=== PATIENT | male | born 1975 | race Caucasian/White ===

== ENCOUNTER 2021-02-07 11:17 | Outpatient (CLI) | payer OTHER, SELFPAY ==
--- NOTE | ~2021-02-07 | XR_ITS ---
EXAMINATION: XR foot RT min 3V DATE: 02/07/2021 11:52 INDICATION: Right foot pain. TECHNIQUE: 4 views of right foot were obtained. COMPARISON: None. FINDINGS: Bone alignment is normal. No fracture. There is mild osteoarthritis of first metatarsophala ngeal joint and talonavicular joint. IMPRESSION: 1. Mild polyarticular osteoarthritis. Reviewed, dictated and finalized at location A. IGERATION SYSTEM INSTALLER
--- NOTE | ~2021-02-07 | XR_ITS ---
EXAMINATION: XR lumbar spine 2-3V DATE: 02/07/2021 11:52 INDICATION: Low back pain. TECHNIQUE: 3 views of lumbar spine were obtained. COMPARISON: Lumbar spine radiographs 05/18/2011 FINDINGS: Bone alignment is normal. Vertebral body heights and intervertebral disc heights are normal . There are endplate osteophytes at multiple levels. There is multilevel mild facet joint osteoarthri tis. IMPRESSION: 1. Mild lumbar spondylosis. Reviewed, dictated and finalized at location A. UNHAIRER IMPRESSION: 1. Mild lumbar spondylosis.
--- NOTE | ~2021-02-07 | XR_ITS ---
EXAMINATION: XR chest 2V 02/07/2021 11:52 INDICATION: Chest pain PROCEDURE: 2 view chest COMPARISON: 07/18/2009 FINDINGS: The lungs are clear. The cardiomediastinal silhouette is within normal limits. There are no pleural effusions. There is no pneumothorax suspected. IMPRESSION: 1: NO ACUTE CARDIOPULMONARY DISEASE. Reviewed, dictated and finalized at location B. CLE DYNAMICS ENGINEER
== END 2021-02-07 11:18 | disposition home or self-care (01) ==
LOC: ANHIMG 11:27
PROVIDERS: PCP Emergency Medicine; Visit Provider Emergency Medicine
DX: R07.9 Chest pain, unspecified (principal); M47.896 Other spondylosis, lumbar region; M19.071 Primary osteoarthritis, right ankle and foot
CPT/HCPCS: 71046; 72100; 73630

== ENCOUNTER 2021-02-15 04:01 | Emergency (ER) | payer OTHER, SELFPAY ==
--- NOTE | ~2021-02-15 | XR_ITS ---
EXAMINATION: XR chest 1V portable DATE: 02/15/2021 04:32 INDICATION: Chest pain. TECHNIQUE: A single frontal view of the chest was obtained on 2 radiographs. COMPARISON: Chest 2 views 02/07/2021, CT abdomen and pelvis 05/25/2011 FINDINGS: There are mild airspace opacities in right lower lung zone. No pleural effusion or pneumoth orax. The heart size is normal. IMPRESSION: 1. Mild airspace opacities in right lower lung zone, consistent with atelectasis versus pneumonia. Reviewed, dictated and finalized at location A. WORKER IMPRESSION: 1. Mild airspace opacities in right lower lung zone, consistent with atelectasi s versus pneumonia.
[2021-02-15 04:07] VITALS: BP 119/76; PULSE 88; RESP 18; TEMP 37; O2SAT 99
--- NOTE | 2021-02-15 04:09 | ED.URI ---
HPI - URI/Sore Throat General Chief Complaint: Upper Respiratory Infection Stated Complaint: cough Time Seen by Provider: 02/15/21 04:08 Source: patient Mode of arrival: ambulatory Limitations: no limitations History of Present Illness HPI Narrative: The patient is a 45-year-old male presenting for evaluation of cough, burning chest pain. Patient states that he began to feel unwell approximately 9 days ago. Patient initially had congestion, sore throat, developed a dry cough over the past week. Patient states that he has chest pain with coughing. No lingering chest pain or pressure. No jaw pain, neck pain or shoulder pain. Denies any shortness of breath. Denies leg swelling or calf pain. Denies pleuritic chest pain. Patient states he has been unable to sleep secondary to chronic coughing. He denies fever, chills, nausea or vomiting. No loss of sense of taste or smell. Patient was seen at his primary care physician's office, states that he had a negative Covid test and a chest x-ray which did not show any evidence of pneumonia. Patient has been taking Mucinex [id number] without much improvement in his symptoms. Related Data Allergies Allergy/AdvReac Type Severity Reaction Status Date / Time No Known Allergies Allergy Unverified 09/22/14 12:45 Review of Systems Review of Systems: CONSTITUTIONAL: Denies fever, chills, or sweats. EYES: Denies visual changes, redness, or discharge. ENT: Denies rhinorrhea, congestion, sore throat, or otalgia. CARDIOVASCULAR: Denies severe chest pain, he denies palpitations or edema RESPIRATORY:Reports cough, denies dyspnea GASTROINTESTINAL: Denies abdominal pain, nausea, vomiting, or diarrhea. GENITOURINARY: Denies dysuria or hematuria. SKIN: Denies rash or itching. MUSCULOSKELETAL: Denies back pain, joint pain, or myalgia. NEUROLOGIC: Denies headache, numbness, or weakness. [facility] Family History Family History (Updated 10/07/15 @ 23:19 by DOCTOR UNKNOWN) Father Hypertension Family history of diabetes mellitus in first degree relative Mother Hypertension Asthma Social History Social History (Updated 02/15/21 @ 04:31 by Katerin Jamison MD) Smoking status: Current every day smoker Tobacco type: cigarettes Alcohol intake: never Substance use: never Gender identity (if verbalized by the patient): Male Exam Narrative: GENERAL: Awake, alert, conversant HEAD: Normocephalic, atraumatic. EYES: PERRLA and EOMI. ENT: Nares clear, no rhinorrhea or epistaxis. Mucous membranes moist. NECK: Supple. CHEST: No respiratory distress, no tachypnea breathing even and non labored, no wheezing, no crackles HEART: Regular rate, sinus rhythm ABDOMEN:Non distended, non tender EXTREMITIES: Normal range of motion. No edema. No calf tenderness bilaterally. SKIN: Warm, dry, no rash. NEURO:No focal deficits. Alert and oriented x3 Course Vital Signs Vital signs: Vital Signs Temperature 37.0 C 02/15/21 04:07 Pulse Rate 88 02/15/21 04:07 Respiratory Rate 18 02/15/21 04:07 Blood Pressure 119/76 02/15/21 04:07 Pulse Oximetry 99 02/15/21 04:07 Temperature 37.0 C 02/15/21 04:07 Pulse Rate 88 02/15/21 04:07 Respiratory Rate 18 02/15/21 04:07 Blood Pressure 119/76 02/15/21 04:07 Pulse Oximetry 99 02/15/21 04:07 MDM - URI/Sore Throat MDM Narrative Medical decision making narrative: Patient presenting for evaluation of cough. At the time of assessment, ABCs are intact and vital signs are stable. EKG without acute ischemic changes. Patient without any anginal type symptoms. Patient was given anti-inflammatories, he was swabbed for influenza which was negative. Patient has a leukocytosis. No hypotension, he is afebrile. Differential includes pneumonia, sinusitis, bronchitis, upper respiratory infection. Chest x-ray seems consistent with a developing right-sided opacity. There is no Chitra consolidation. Given leukocytosis, cough, lingering sym
--- NOTE | 2021-02-15 04:18 | ECG_ITS ---
Measurements Intervals [place] Rate: 84 P: 19 SD: 129 QRS: 50 QRSD: 88 T: 43 QT: 370 QTc: 439 Interpretive Statements SINUS RHYTHM BASELINE WANDER- AVL NORMAL ECG Electronically Signed On 02-15-2021 6:49:05 TUBE REPAIRER by Julian Brandt D.O.
[2021-02-15 04:51] LABS: Basophils Absolute Auto 0.1 K/mm3 (0.0-0.1); Basophils Percent Auto 0.5 % (0.2-1.2); Eosinophils Absolute Auto 0.5 K/mm3 (0-0.3); Eosinophils Percent Auto 3.1 % (0-4.4); Hematocrit 43.7 % (42.0-52.0); Hemoglobin 15.2 g/dL (14.0-18.0); Immature Granulocyte Absolute 0.09 K/mm3 (0.00-0.031); Immature Granulocyte Percent A 0.6 % (0-0.5); Lymphocytes Absolute Auto 3.56 K/mm3 (0.9-3.2); Lymphocytes Percent Auto 22.4 % (18.3-44.2); Mean Corpuscular HGB Conc 34.8 g/dl (32-36); Mean Corpuscular Hemoglobin 30.6 pg (26-34); Mean Corpuscular Volume 87.9 fl (80-100); Mean Platelet Volume 9.8 fl (7.4-10.4); Monocytes Absolute Auto 1.5 K/mm3 (0.1-0.6); Monocytes Percent Auto 9.4 % (2.6-8.5); Neutrophils Absolute Auto 10.2 K/mm3 (1.3-6.7); Platelet Count Result 287 k/mm3 (150-375); Red Blood Count 4.97 M/mm3 (4.6-6.20); Red Cell Distribution Width 11.9 % (11.5-14.5); White Blood Count 15.9 K/mm3 (4.5-10.0)
[2021-02-15] MEDS: ACETAMINOPHEN 500 MG TABLET 1000 MG PO (05:00)
[2021-02-15 05:01] LABS: Anion Gap 11 mmol/L (8-16); Blood Urea Nitrogen 16 mg/dL (9-20); Calcium 9.2 mg/dL (8.4-10.2); Carbon Dioxide 22 mmol/L (22-30); Chloride 104 mmol/L (98-107); Estimated CRCL calculation 112 ml/min; Estimated Glomerular Filt Rate > 60; Glucose 146 mg/dL (65-110); Sodium 137 mmol/L (137-145)
[2021-02-15] MEDS: KETOROLAC (*BKC) 60 MG/2 ML VIAL 30 MG IM (05:01)
[2021-02-15 06:23] VITALS: PULSE 88; RESP 18; O2SAT 98
[2021-02-15 20:26] LABS: SARS-CoV-2 RNA PCR Negative
== END 2021-02-15 06:24 | disposition home or self-care (01) ==
PROVIDERS: Emergency Provider Emergency Medicine; PCP Emergency Medicine
DX: J06.9 Acute upper respiratory infection, unspecified (principal); F17.200 Nicotine dependence, unspecified, uncomplicated; Z20.822 Contact with and (suspected) exposure to COVID-19
CPT/HCPCS: 36415; 71045; 80048; 85025; 93005; 96372; 99283; A9270; C9803; J1100; J1885; U0003; U0005

== ENCOUNTER 2021-03-02 13:53 | Outpatient (CLI) | payer OTHER, SELFPAY ==
--- NOTE | ~2021-03-02 | XR_ITS ---
EXAMINATION: XR chest 2V 03/02/2021 14:16 INDICATION: Right lung pneumonia PROCEDURE: 2 view chest COMPARISON: Comparison to multiple prior studies sequentially, with oldest reviewed study dated 12/03. FINDINGS: The lungs are clear. The cardiomediastinal silhouette is within normal limits. There are no pleural effusions. There is no pneumothorax suspected. IMPRESSION: 1: NO ACUTE CARDIOPULMONARY DISEASE. Reviewed, dictated and finalized at location A. THESIOLOGY PHYSICIAN ASSISTANT
[2021-03-02 14:47] LABS: Hematocrit 45.2 % (42.0-52.0); Hemoglobin 15.7 g/dL (14.0-18.0); Mean Corpuscular HGB Conc 34.7 g/dl (32-36); Mean Corpuscular Hemoglobin 30.8 pg (26-34); Mean Corpuscular Volume 88.8 fl (80-100); Mean Platelet Volume 10.4 fl (7.4-10.4); Platelet Count Result 267 k/mm3 (150-375); Red Blood Count 5.09 M/mm3 (4.6-6.20); Red Cell Distribution Width 12.1 % (11.5-14.5)
[2021-03-02 14:51] LABS: Add Urine Microscopic? YES; Appearance Urine Clear (Clear); Bilirubin Urine Negative (Negative); Blood Urine 1+ (Negative); Color Urine Straw (Yellow); Glucose Urine UA Negative (Negative); Ketones Urine Negative (Negative); Leukocyte Esterase Ur Negative LEU/UL (NEGATIVE); Mucus Urine Rare /lpf; Nitrate Urine Negative (Negative); Protein Urine Negative (Negative); RBC Urine 0-2 /hpf (0-2); Squamous Epithelial Cell Urine Rare /hpf (Few); Urobilinogen Urine Negative mg/dL (<2.0); WBC Urine 0-3 /hpf (0-3)
[2021-03-02 15:07] LABS: Specific Grav Ur 1.002 (1.001-1.035)
== END 2021-03-02 13:54 | disposition home or self-care (01) ==
LOC: ANHIMG 14:04
PROVIDERS: PCP Emergency Medicine; Visit Provider Emergency Medicine
DX: J18.9 Pneumonia, unspecified organism (principal); R31.9 Hematuria, unspecified; D72.829 Elevated white blood cell count, unspecified
CPT/HCPCS: 36415; 71046; 81001; 85027

== ENCOUNTER 2022-05-04 09:54 | Outpatient (CLI) | payer OTHER, SELFPAY ==
[2022-05-04 10:50] LABS: Hematocrit 46.1 % (42.0-52.0); Hemoglobin 15.5 g/dL (14.0-18.0); Mean Corpuscular HGB Conc 33.6 g/dl (32-36); Mean Corpuscular Hemoglobin 29.9 pg (26-34); Mean Platelet Volume 10.3 fl (7.4-10.4); Platelet Count Result 260 k/mm3 (150-375); Red Blood Count 5.18 M/mm3 (4.6-6.20); Red Cell Distribution Width 12.1 % (11.5-14.5); White Blood Count 6.8 K/mm3 (4.5-10.0)
[2022-05-04 10:53] LABS: Alanine Aminotransferase 25 U/L (6-50); Albumin Level 4.5 g/dL (3.5-5.1); Alkaline Phosphatase 96 U/L (38-126); Anion Gap 4 mmol/L (8-16); Aspartate Amino Transferase 22 U/L (17-59); Bilirubin,Total 0.8 mg/dL (0.2-1.3); Blood Urea Nitrogen 11 mg/dL (9-20); Carbon Dioxide 28 mmol/L (22-30); Chloride 108 mmol/L (98-107); Cholesterol 180 mg/dL (0-200); Estimated Glomerular Filt Rate > 60; Glucose 116 mg/dL (65-110); HDL Direct 31 mg/dL; Potassium 4.5 mmol/L (3.4-5.0); Sodium 140 mmol/L (137-145); Triglycerides 102 mg/dL (<150)
[2022-05-04 10:57] LABS: Creatinine Urine 129.4 mg/dL
[2022-05-04 11:01] LABS: MALB Creatinine Ratio 5.7 mg/g (0-30); Microalbumin Urine Random 7.4 mg/L (0-16.7)
[2022-05-04 11:04] LABS: LDL Cholesterol Direct 115 mg/dL
[2022-05-04 11:06] LABS: Hemoglobin A1C 5.9 % (<5.7)
[2022-05-04 11:12] LABS: Vitamin D 25 Hydroxy 37.4 ng/mL
[2022-05-04 11:24] LABS: Prostate Specific Antigen 0.4 ng/mL (< OR = 4.0); Thyroid Stimulating Hormone 0.915 uIU/mL (0.465-4.680)
== END 2022-05-04 09:55 | disposition home or self-care (01) ==
LOC: ANHLAB 09:56
PROVIDERS: PCP Emergency Medicine; Visit Provider Emergency Medicine
DX: E55.9 Vitamin D deficiency, unspecified (principal)
CPT/HCPCS: 36415; 80053; 80061; 82043; 82306; 83036; 84153; 84439; 84443; 85027; 87086; G0103